=== PATIENT | male | born 1935 | race Caucasian/White ===

== ENCOUNTER 2016-05-04 11:35 | Day surgery (SDC) | payer OTHER ==
[~2016-05-04] VITALS: Ht 162.6 cm; Wt 70.3 kg
[~2016-05-04 11:35] MED LIST: ALEVE220 MG PO; CALCITONIN200 MG/ACT; CETIRIZINE HCL10 MG PO; FLONASE AL50 MCG/ACT IN; FLOVENT HFA110 MCG IN; IRON325 MG PO; LOSARTAN POTASS1 TAB PO; METAMUCIL28.3 % PO; NEXIUM40 M1 PO; NORCO1 TA1 PO; SIMVASTATIN40 MG PO; SUCRALFATE1 GM PO; SYNTHROID88 MCG PO; TRAZODONE HCL50 MG PO
[2016-05-04 13:25] VITALS: BP 120/64
--- NOTE | 2016-05-04 14:55 | DIAGNOSTIC IMAGING REPORT ---
PROCEDURE: XR SPINE 2-3 VIEW-PAIN CL[facility]IC INDICATION: RIGHT L3/L4 TECHNIQUE: C-arm fluoroscopy provided to Dr. Ramirez for therapeutic spinal injection. Fluoroscopy time 0.26 minutes 11 mGy). COMPARISON: None. FINDINGS: AP and lateral C-arm views. There is a needle tip overlying the posterior spinal canal at the L4-5 level with injection of a small amount of epidural contrast material. IMPRESSION: 1. C-arm fluoroscopy for therapeutic spinal injection (performed by Dr. Ramirez).
--- NOTE | 2016-05-04 16:12 | PROCEDURE NOTE ---
DATE OF PROCEDURE: 05/04/2016 ATTENDING PHYSICIAN/PROVIDER: Jaylan Ramirez MD PREPROCEDURE DIAGNOSIS: 1. Right L3 radiculitis POSTPROCEDURE DIAGNOSIS: 1. Right L3 radiculitis PROCEDURE PERFORMED: 1. Lumbar epidural steroid injection. INDICATIONS: The patient is referred by Dr. Kapoor for lumbar epidural steroid injection. He complains of low back pain radiating into the right leg. MEDICAL/SURGICAL HISTORY: Medical history: High cholesterol, high blood pressure. History of pneumonia, asthma, previous postoperative lung infection, history of gastroesophageal reflux disease. He has had a splenectomy, diverticulosis, pancreatitis, shingles , osteoporosis, back and whiplash injuries, anemia, melanoma, thyroid dysfunction. Past surgical history: Appendectomy, removal of a cyst from his tail bone, right carpal tunnel release, vasectomy, elbow tendon transfer, left foot repair, removal of melanoma from the left shoulder, left rotator cuff repair, laparoscopic Bobbi repair, splenectomy , thoracotomy with chest tubes following lung infection, right inguinal neurectomy , colonoscopy, EGD. MEDICATIONS: 1. Albuterol inhalation as needed. 2. Calcitonin 200 units nasally. 3. Calcium carbonate. 4. Vitamin D 400 mg daily. 5. Cetirizine 10 mg orally once daily. 6. Clobetasol 0.05% external solution. 7. Cyanocobalamin 500 mcg orally daily. 8. Diclofenac 1% transdermal gel. 9. Econazole nitrate external cream. 10. Esomeprazole 40 mg orally once daily. 11. Ferrous sulfate 300 mg orally once daily. 12. Fluticasone 50 mcg nasal suspension daily. 13. Levothyroxine tablets 88 mcg orally once daily. 14. Losartan potassium 50 mg orally once daily. 15. Metformin 500 mg orally once daily. 16. Ondansetron 8 mg orally once daily. 17. Ranitidine 150 mg orally once daily. 18. Simvastatin 40 mg orally once daily. 19. Trazodone. ALLERGIES: 1. ASPIRIN. 2. HYDROCHLOROTHIAZIDE. 3. ETODOLAC. 4. BENAZEPRIL. 5. PREGABALIN. SOCIAL HISTORY: He is retired from the . He is happily and leads an active life. He does not smoke or drink alcohol. FAMILY HISTORY: Noncontributory. REVIEW OF SYSTEMS: Noncontributory. PHYSICAL EXAMINATION: GENERAL: A healthy-appearing man in no acute distress. Lively and active. VITAL SIGNS: 150 pounds weight, height 5 feet 4 inches. Blood pressure 127/68, pulse 70, respirations 20, temperature 98.0, room air oxygen saturation 100%. CARDIOVASCULAR: Heart sounds normal. RESPIRATORY: Chest clear. NEUROLOGIC: Alert and oriented. Cranial nerves grossly intact. HEAD/NECK: Normocephalic and atraumatic. Neck: Full range of motion. EXTREMITIES: Knee and ankle jerks present and symmetrical. LAB/IMAGING: Lumbar spine MRI from 09/25/2015: Mild levoscoliosis, mildly bulging disk at L1-L2 without significant compromise. Posterolateral disk herniation at L2-L3 , consider right L3 and right L2 radiculopathy, mildly bulging disk at L3-L4 and L4-L5, with no evidence of significant canal compromise. Moderate to severe right and moderate left facet disease at L5-S1, with grade 1 degenerative listhesis. IMPRESSION: 1. Right lumbar radiculitis PLAN: Lumbar epidural steroid injection. DESCRIPTION OF PROCEDURE: After obtaining informed consent, the patient was taken to the procedure room and positioned in the prone position. The lumbar region was prepped with ChloraPrep and draped in sterile fashion. Lidocaine 1% was infiltrated over the right hand lamina of the L4 vertebra, and an 18-gauge Tuohy needle was advanced onto the lamina and then into the epidural space at L3. Its placement was confirmed by injection of 2 mL of Omnipaque 240, which showed good epidural spread. This was followed by an injection of 6 mL of 0.5% lidocaine containing 80 mg of Depo-Medrol. The needle was removed and a Band-Aid applied. The patient tolerated the procedure well and walked back comfortably to the recovery area where he was observed for 30 minutes, and no neurological deficit developed. He was advised to follow up with Dr. Kapoor.
== END 2016-05-04 13:15 | disposition home or self-care (01) ==
LOC: CDU SRH 11:35
PROVIDERS: Specialist
PROC: 3E0R33Z Introduction of Anti-inflammatory into Spinal Canal, Percutaneous Approach (ICD-10-PCS; principal; 2016-05-04 12:00)
PROC: 3E0R3BZ Introduction of Anesthetic Agent into Spinal Canal, Percutaneous Approach (ICD-10-PCS; principal; 2016-05-04 12:00)
DX: M54.16 Radiculopathy, lumbar region (principal)
CPT/HCPCS: 55000